=== PATIENT | male | born 1975 | race Caucasian/White ===

== ENCOUNTER 2017-06-20 15:37 | Emergency (ER) | payer OTHER ==
--- NOTE | 2017-06-20 16:31 | UC ---
Skin Complaint HPI - HPI Summary HPI Summary: Pt presents with rash to mid back for the last week. He tells me that about 1 week ago he felt an itch to the area of his mid back - thought it was a pimple. Eventually progressed to slight burning and pain radiating to the left axilla and left anterior chest. There is also a lesion on the left anterior chest. Denies fever, chills, or recent illness. - History of Current Complaint Time Seen by Provider: 06/20/17 16:31 Stated Complaint: RASH Hx Obtained From: Patient Onset/Duration: Gradual Onset Skin Exposure Onset/Duration: Days Ago Timing: Constant Onset Severity: Mild Current Severity: Mild Pain Intensity: 2 Pain Scale Used: 0-10 Numeric - Allergy/Home Medications Allergies/Adverse Reactions: Allergies Allergy/AdvReac Type Severity Reaction Status Date / Time No Known Allergies Allergy Verified 06/15/13 14:55 Home Medications: Home Medications NK [No Home Medications Reported] 06/20/17 [History Confirmed 06/20/17] Review of Systems Constitutional: Negative Skin: Rash - Left mid back and left chest Respiratory: Negative Cardiovascular: Negative Neurological: Negative Psychological: Negative All Other Systems Reviewed And Are Negative: Yes PMH/Surg Hx/FS Hx/Imm Hx Previously Healthy: Yes - Surgical History Surgical History: Yes Surgery Procedure, Year, and Place: umbilical hernia repair- age 27 - Family History Known Family History: Positive: None - Social History Occupation: Employed Full-time Lives: With Family Alcohol Use: Daily Substance Use Type: None Type: Cigarettes, Cigars Amount Used/How Often: 1-2 cigarettes a day, sometimes none Length of Time of Smoking/Using Tobacco: 5 years Have You Smoked in the Last Year: Yes Physical Exam Triage Information Reviewed: Yes Appearance: Well-Appearing, No Pain Distress, Well-Nourished Vital Signs Reviewed: Yes Neck: Positive: Supple, Nontender, No Lymphadenopathy Respiratory: Positive: Lungs clear, Normal breath sounds, No respiratory distress, No accessory muscle use Cardiovascular: Positive: RRR, No Murmur, Pulses Normal Neurological: Positive: Alert Psychological: Positive: Age Appropriate Behavior Skin: Positive: Other - On mid left back along T3 there is a 1.0cm area of erythema, tenderness, and mild edema with healed crusting. On the left chest along T3 dermatome there is a similar lesion measuring 5mm in diameter. No drainage or bleeding. Course/Dx - Course Course Of Treatment: Suspect herpes zoster - lesions appear to be almost completely healed. He is tolerating the pain very well. No treatment at this time. Advised to keep area covered. - Diagnoses Provider Diagnoses: Herpes zoster Discharge - Discharge Plan Condition: Stable Disposition: HOME Patient Education Materials: Shingles (ED) Referrals: Asim Curiel MD [Primary Care Provider] - Additional Instructions: If you develop a fever, shortness of breath, chest pain, new or worsening symptoms - please call your PCP or go to the ED.
[2017-06-20 16:38] VITALS: BP 132/79
== END 2017-06-20 16:50 | disposition home or self-care (01) ==
LOC: UCEAST 15:37
DX: B02.9 Zoster without complications (principal); F17.210 Nicotine dependence, cigarettes, uncomplicated; F17.290 Nicotine dependence, other tobacco product, uncomplicated
CPT/HCPCS: 99211; G0463